=== PATIENT | female | born 1950 | race Caucasian/White ===

== ENCOUNTER 2018-06-24 13:44 | Outpatient (CLI) | payer MEDICARE, OTHER ==
--- NOTE | 2018-06-24 15:51 | ULT ---
CAROTID DOPPLER: Technique: Ultrasound doppler study was performed of the extracranial carotid arteries. Color doppler with spectral analysis recordings obtained. Indications: Vertigo. FINDINGS: No significant plaque seen with ultrasound. Velocity recordings are within normal range bilaterally. Vertebral arteries show antegrade flow. IMPRESSION: No evidence of significant stenosis. POS: [facility]
== END 2018-06-24 13:45 | disposition home or self-care (01) ==
LOC: BICULT 13:44
PROVIDERS: ATTEND Student in an Organized Health Care Education/Training Program
DX: R42 Dizziness and giddiness (principal)
CPT/HCPCS: 93880

== ENCOUNTER 2019-01-14 08:50 | Day surgery (SDC) | payer MEDICARE ==
[2019-01-13 11:58] VITALS: BMI 17.9
[2019-01-14] MEDS ORDERED: Lidocaine-Prilocaine 2.5% Cream 5 GM TUBE ONE (09:51)
[2019-01-14] MEDS ORDERED: PROPOFOL 200 MG/20 ML VIAL ONE (10:32)
--- NOTE | 2019-01-14 12:10 | OP ---
DATE OF PROCEDURE: 01/14/2019 PREPROCEDURE DIAGNOSIS: Iron-deficiency anemia. Recent hemoglobin 10.3, iron sat 10, serum iron 36, ferritin 29, and B12 and folate were normal. POSTPROCEDURE DIAGNOSES: 1. Normal esophagogastroduodenoscopy with small bowel biopsies taken to rule out celiac. 2. 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 This was cauterized with 7-Danish heater probe. It is unclear if this is a source of her anemia. RECOMMENDATIONS: Iron supplementation. Follow up in the office in 3 weeks. If anemia persists, there is not improving, we would consider capsule endoscopy of the small bowel. ANESTHESIA: TIVA. PROCEDURE IN DETAIL: After the patient was informed of the risks, benefits, and possible complications of endoscopy including perforation, bleeding, reaction to medication, and aspiration, informed consent was obtained. The patient was brought to the endoscopy suite, where she was sedated in gradual fashion. Once she was comfortable, bite block was placed inside the orifice. The endoscope was advanced through the esophagus, stomach, and second and third portion of duodenum and slowly removed. The visualized segments of these regions were all normal. Random biopsies taken from the small bowel to rule out celiac. The scope was removed. The patient was returned to the room and rectal examination was performed. The endoscope was inserted into the anal canal through the colon to the cecum, which was identified by ileocecal valve and the appendiceal orifice. There were no polyps, lesions, or masses. The scope was then slowly removed. The prep was excellent. There was one small bleeding punctate lesion in the ascending colon, probably a small AVM, which was cauterized with 7-Danish heater probe. It is unclear if this is a source of her bleeding, but no other lesions were seen. Retroflexed views in the rectum were normal. Scope was removed. The patient tolerated the procedure well. There were no complications. Job ID: [id number]
[2019-01-14] MEDS ORDERED: Sodium Chloride 0.9% 10 ML ONE (12:20)
== END 2019-01-14 12:45 | disposition home or self-care (01) ==
LOC: SDC 08:50
PROVIDERS: ATTEND Internal Medicine Gastroenterology
PROC: 0DB98ZZ Excision of Duodenum, Via Natural or Artificial Opening Endoscopic (ICD-10-PCS; principal; 2019-01-14)
PROC: 0W3P8ZZ Control Bleeding in Gastrointestinal Tract, Via Natural or Artificial Opening Endoscopic (ICD-10-PCS; 2019-01-14)
DX: D50.9 Iron deficiency anemia, unspecified (principal); Q27.33 Arteriovenous malformation of digestive system vessel; K21.9 Gastro-esophageal reflux disease without esophagitis; E78.00 Pure hypercholesterolemia, unspecified; Z79.899 Other long term (current) drug therapy; Z88.8 Allergy status to other drugs, medicaments and biological substances
CPT/HCPCS: 88305; J1642; J2704

== ENCOUNTER 2019-05-23 10:41 | Outpatient (CLI) | payer MEDICARE ==
--- NOTE | 2019-05-23 13:44 | MRI ---
MR OF THE RIGHT HIP WITHOUT CONTRAST: 05/23/19 INDICATION: History of hip joint pain after a fall; history of postmenopausal osteoporosis. Patient states a fall occurred 11 days ago. Patient has had right hip pain since this injury. COMPARISON: CT of the abdomen and pelvis dated November 18, 2014. FINDINGS: There is a nondisplaced, incomplete, right intertrochanteric hip fracture involving the posterior rig ht intertrochanteric region, best seen on image 12 of series 2. The right gluteus minimus and medias tendons appear intact. There is mild tendinosis of the right gluteus minimus tendon. No iliopsoas bur sitis is evident. Right hamstring origin and right rectus femoris origin appears within normal limits . There is a partial thickness tear involving the superior acetabular labrum on image 14 of series 5 extending into the posterior superior acetabulum. There is mild chondrosis involving the right hip brandon int. No hip effusion is evident. No additional fracture is noted. The visualized intrapelvic contents appear within normal limits. IMPRESSION: 1. Nondisplaced right intertrochanteric hip fracture. 2. Partial thickness tear of the superior and post superior acetabular labrum. 3. Mild right gluteus minimus tendinosis. 4. Findings were called to the patient, Ms. Tanja Huddleston at 12:25 p.m. on 05/23/19. [facility] [place] Recommended to this patient that the patient contact Dr. Lopez's office. I tried to contact Dr. Lopez's office but was unable to contact an attendant or Dr. Lopez. Recommend this patient to be nonweightbea ring of the right lower extremity and to get referral to orthopedic surgery for management of her non displaced right intertrochanteric hip fracture. POS: [facility]
== END 2019-05-23 10:42 | disposition home or self-care (01) ==
LOC: SCSMRI 10:41
PROVIDERS: ATTEND Student in an Organized Health Care Education/Training Program
DX: M25.551 Pain in right hip (principal); Z91.81 History of falling; M81.0 Age-related osteoporosis without current pathological fracture; S72.144A Nondisplaced intertrochanteric fracture of right femur, initial encounter for closed fracture; S73.101A Unspecified sprain of right hip, initial encounter; M76.9 Unspecified enthesopathy, lower limb, excluding foot

== ENCOUNTER 2019-06-23 09:53 | Outpatient (CLI) | payer MEDICARE ==
--- NOTE | 2019-06-23 12:49 | CT ---
CT RIGHT HIP: DATE: 06/23/2019. PROVIDED CLINICAL HISTORY: Right hip fracture. FINDINGS: Correlation is made with the MRI of the right hip dated 05/23/2019. In the region of linear signal ab normality involving the lesser trochanter and intratrochanteric region of the right proximal femur on prior MR, there is no CT abnormality apparent. There is no evidence for cortical disruption. Enthe sophyte formation is noted at the anterior aspects of the greater trochanter. Right hip joint space appears preserved. There is no evidence for hip joint effusion. Alignment appears anatomic. No lyt ic or blastic bony lesions are seen. IMPRESSION: No CT correlate for the described hip fracture on prior MRI. POS: [facility]
== END 2019-06-23 09:54 | disposition home or self-care (01) ==
LOC: SCSCT 09:53
DX: S72.144A Nondisplaced intertrochanteric fracture of right femur, initial encounter for closed fracture (principal); M25.551 Pain in right hip; M81.0 Age-related osteoporosis without current pathological fracture; Z91.81 History of falling

== ENCOUNTER 2021-04-18 13:51 | Outpatient (CLI) | payer MEDICARE | END 2021-04-18 13:52 | disposition home or self-care (01) | LOC: RAD 13:51 → BICRAD 13:52 | PROVIDERS: ATTEND Internal Medicine Gastroenterology | DX: R10.30 Lower abdominal pain, unspecified (principal); K52.9 Noninfective gastroenteritis and colitis, unspecified; N20.0 Calculus of kidney | CPT/HCPCS: 74018 ==